=== PATIENT | male | born 1960 | race Caucasian/White ===

== ENCOUNTER 2021-04-01 15:22 | Inpatient (IN) | payer BC ==
[~2021-04-01] VITALS: Ht 175.3 cm; Wt 90.9 kg
[2021-04-01] MEDS ORDERED: ondansetron/PF 4mg/2ml inj IV ONE (16:10)
[2021-04-01] MEDS ORDERED: iohexol 350MG/ML 100ml bottle IV ONE (16:20)
[2021-04-01] MEDS ORDERED: dexamethasone 4mg tablet PO ONE (16:20)
[2021-04-01 16:25] LABS: BASOPHILS % (AUTO) 0.2 % (0-1); EOSINOPHILS % (AUTO) 0.1 % (0-6); HEMATOCRIT 40.9 % (42.0-52.0); HEMOGLOBIN 13.9 g/dl (14.0-17.9); LYMPHOCYTES # (AUTO) 0.6 X10'3 (1.1-4.8); LYMPHOCYTES % (AUTO) 13.7 % (21-51); MEAN CORPUSCULAR HEMOGLOBIN 29.3 PG (27.0-31.0); MEAN CORPUSCULAR HGB CONC 33.9 g/dL (33.0-36.5); MEAN CORPUSCULAR VOLUME 86.3 FL (78-98); MEAN PLATELET VOLUME 8.3 FL (7.4-10.4); MONOCYTES # (AUTO) 0.2 X10'3 (0-0.9); MONOCYTES % (AUTO) 4.9 % (2-12); NEUTROPHILS # (AUTO) 3.6 X10'3 (1.8-7.7); NEUTROPHILS % (AUTO) 81.1 % (42-75); PLATELET COUNT 181 X10'3 (140-440); RED BLOOD COUNT 4.74 X10'6 (4.70-6.10); RED CELL DISTRIBUTION WIDTH 14.4 % (11.5-14.5); WHITE BLOOD COUNT 4.4 X10'3 (4.5-11.0)
[2021-04-01 16:39] LABS: D-DIMER 0.51 MG/L FEU (0-0.50)
[2021-04-01 16:43] LABS: ALANINE AMINOTRANSFERASE 72 U/L (12-78); ALBUMIN 3.2 G/DL (3.4-5.0); ALBUMIN/GLOBULIN RATIO 0.7 (1.1-1.5); ALKALINE PHOSPHATASE 65 IU/L (46-116); ASPARTATE AMINO TRANSFERASE 69 U/L (10-37); BILIRUBIN,TOTAL 0.4 MG/DL (0.1-1.0); BLOOD UREA NITROGEN 17 MG/DL (7-18); BUN/CREATININE RATIO 13.2 (5.4-32.0); C-REACTIVE PROTEIN 8.36 MG/DL (0.0-0.5); CALCIUM 8.6 MG/DL (8.5-10.1); CREATININE 1.29 MG/DL (0.60-1.10); GLUCOSE 118 MG/DL (70-104); LACTATE DEHYDROGENASE 367 U/L (85-227); MAGNESIUM 2.1 MG/DL (1.5-2.4); TOTAL CARBON DIOXIDE 27.3 MMOL/L (24-32); TOTAL PROTEIN 7.8 G/DL (6.4-8.2); eGFR 57 ML/MIN
[2021-04-01 16:52] LABS: ANION GAP 8 (8-16); CHLORIDE 104 MMOL/L (99-107); POTASSIUM 4.1 MMOL/L (3.5-5.1); SODIUM 139 MMOL/L (135-145)
[2021-04-01] MEDS ORDERED: AMLO5TAB4 PO (16:55)
[2021-04-01] MEDS ORDERED: ALBU6.7H9 INH (16:55)
[2021-04-01] MEDS ORDERED: FLUT1DIS20 INH (16:55)
[2021-04-01] MEDS ORDERED: LOSA50TA3 PO (16:55)
[2021-04-01] MEDS ORDERED: OMEP40CA21 PO (16:55)
[2021-04-01] MEDS ORDERED: REMDESIVIR INJ 200 MG in normal saline 100ml IV soln 60 ML IV ONE (18:00)
[2021-04-01] MEDS ORDERED: magnesium 2GM in 50ml NS 50 ML IV PRN (18:05)
[2021-04-01] MEDS ORDERED: acetaminophen 325mg tablet PO PRN (18:05)
[2021-04-01] MEDS ORDERED: magnesium 4gm in 100ml NS 100 ML IV PRN (18:05)
[2021-04-01] MEDS ORDERED: mag hydrox/Alum hydrox/simeth 30ml oral suspension PO PRN (18:05)
[2021-04-01] MEDS ORDERED: potassium Cl 20 mEq SR tablet PO PRN ×2 (18:05)
[2021-04-01] MEDS ORDERED: potassium Cl 40MEQ/1/2NS 520ml 520 ML IV PRN ×2 (18:05)
[2021-04-01] MEDS ORDERED: magnesium hydroxide 30ml (MOM) UD suspension PO PRN (18:05)
[2021-04-01] MEDS ORDERED: ondansetron/PF 4mg/2ml inj IV PRN (18:05)
[2021-04-01] MEDS ORDERED: HYDROcodone/acetaminophen 5mg/325mg tablet PO PRN (18:05)
[2021-04-01] MEDS ORDERED: HYDROcodone/acetaminophen 10/325mg tab PO PRN (18:05)
[2021-04-01] MEDS: ALBUTEROL INHALER 1 PUFF/90 MCG INHALER IH SCH (20:00)
[2021-04-01] MEDS: SALMETEROL IH SCH (20:00)
[2021-04-01] MEDS ORDERED: dexamethasone 4mg/ml inj IM SCH (20:00)
[2021-04-01] MEDS: docusate sod 100mg capsule PO SCH (20:00)
[2021-04-01] MEDS: FLUTICASONE IH SCH (20:00)
[2021-04-01] MEDS: K and/or MAG REPLACEMENT MC SCH (20:00)
[2021-04-01] MEDS: enoxaparin 40mg/0.4ml syringe SQ SCH (20:50)
[2021-04-01 20:54] LABS: CLARITY,URINE CLEAR (Clear); COLOR,URINE YELLOW (Yellow); GLUCOSE, URINE NEGATIVE (Neg); KETONES,URINE 15 mg/dl (Neg); LEUKOCYTE ESTERASE ,URINE NEGATIVE (Neg); NITRITES, URINE NEGATIVE (Neg); OCCULT BLOOD,URINE NEGATIVE (Neg); PROTEIN,URINE NEGATIVE (Neg); UA COLLECTION TYPE URINAL; UROBILINOGEN,URINE 0.2 E.U/dL (0.2-1.0)
[2021-04-02] MEDS: ALBUTEROL INHALER 1 PUFF/90 MCG INHALER IH SCH ×4 (02:00→20:46)
[2021-04-02] MEDS: acetaminophen 325mg tablet PO PRN ×4 (03:50→22:22)
[2021-04-02] MEDS: pantoprazole 40mg Tablet.DR PO SCH (07:19)
[2021-04-02] MEDS: docusate sod 100mg capsule PO SCH ×2 (07:19→20:00)
[2021-04-02] MEDS: enoxaparin 40mg/0.4ml syringe SQ SCH ×2 (07:21→11:16)
[2021-04-02] MEDS: amLODIPine 5mg tablet PO SCH (07:24)
[2021-04-02] MEDS: REMDESIVIR INJ 100 MG in normal saline 100ml IV soln 80 ML IV SCH (08:00)
[2021-04-02] MEDS: losartan 50mg tablet PO SCH (08:00)
[2021-04-02] MEDS: FLUTICASONE IH SCH ×2 (08:17→22:22)
[2021-04-02] MEDS: SALMETEROL IH SCH ×2 (08:17→22:22)
[2021-04-02 08:22] LABS: BASOPHILS % (AUTO) 0.1 % (0-1); EOSINOPHILS % (AUTO) 0 % (0-6); HEMATOCRIT 41.9 % (42.0-52.0); LYMPHOCYTES # (AUTO) 0.6 X10'3 (1.1-4.8); LYMPHOCYTES % (AUTO) 10.8 % (21-51); MEAN CORPUSCULAR HGB CONC 33.5 g/dL (33.0-36.5); MEAN CORPUSCULAR VOLUME 86.8 FL (78-98); MEAN PLATELET VOLUME 7.9 FL (7.4-10.4); MONOCYTES # (AUTO) 0.4 X10'3 (0-0.9); MONOCYTES % (AUTO) 6.6 % (2-12); NEUTROPHILS # (AUTO) 4.4 X10'3 (1.8-7.7); NEUTROPHILS % (AUTO) 82.5 % (42-75); PLATELET COUNT 211 X10'3 (140-440); RED BLOOD COUNT 4.82 X10'6 (4.70-6.10); WHITE BLOOD COUNT 5.4 X10'3 (4.5-11.0)
[2021-04-02 08:28] LABS: D-DIMER 0.34 MG/L FEU (0-0.50)
[2021-04-02] MEDS: K and/or MAG REPLACEMENT MC SCH ×2 (08:28→19:48)
[2021-04-02 08:29] LABS: ALANINE AMINOTRANSFERASE 72 U/L (12-78); ALBUMIN 3.2 G/DL (3.4-5.0); ALBUMIN/GLOBULIN RATIO 0.7 (1.1-1.5); ANION GAP 10 (8-16); ASPARTATE AMINO TRANSFERASE 79 U/L (10-37); BILIRUBIN,TOTAL 0.3 MG/DL (0.1-1.0); BLOOD UREA NITROGEN 22 MG/DL (7-18); BUN/CREATININE RATIO 17.9 (5.4-32.0); C-REACTIVE PROTEIN 9.82 MG/DL (0.0-0.5); CALCIUM 8.9 MG/DL (8.5-10.1); CHLORIDE 102 MMOL/L (99-107); CREATININE 1.23 MG/DL (0.60-1.10); GLUCOSE 133 MG/DL (70-104); MAGNESIUM 2.3 MG/DL (1.5-2.4); POTASSIUM 4.4 MMOL/L (3.5-5.1); SODIUM 137 MMOL/L (135-145); TOTAL CARBON DIOXIDE 25.1 MMOL/L (24-32); TOTAL PROTEIN 7.7 G/DL (6.4-8.2); eGFR 60 ML/MIN
[2021-04-02 08:30] LABS: ALKALINE PHOSPHATASE 74 IU/L (46-116)
[2021-04-02] MEDS: dexamethasone 6 MG in NS 50ml IV soln IV SCH ×2 (10:39→20:05)
[2021-04-02] MEDS: temazepam 15mg capsule PO PRN (22:22)
[2021-04-03] MEDS: ALBUTEROL INHALER 1 PUFF/90 MCG INHALER IH SCH ×4 (02:00→19:19)
--- NOTE | 2021-04-03 05:20 | NUR ---
Pt O2 sat dropping to 85 consistently. Pt woken and instructed to use bedside inhaler per respiratory therapy and to deep breathe and cough. Pt states he is not coughing up mucus, but it feels loose in his lungs. Pt O2 sat increased to 89%.
[2021-04-03 07:37] LABS: BASOPHILS % (AUTO) 0.1 % (0-1); EOSINOPHILS % (AUTO) 0 % (0-6); HEMATOCRIT 39.7 % (42.0-52.0); HEMOGLOBIN 13.6 g/dl (14.0-17.9); LYMPHOCYTES # (AUTO) 0.8 X10'3 (1.1-4.8); LYMPHOCYTES % (AUTO) 8.1 % (21-51); MEAN CORPUSCULAR HEMOGLOBIN 29.3 PG (27.0-31.0); MEAN CORPUSCULAR HGB CONC 34.3 g/dL (33.0-36.5); MEAN CORPUSCULAR VOLUME 85.3 FL (78-98); MEAN PLATELET VOLUME 7.9 FL (7.4-10.4); MONOCYTES # (AUTO) 0.6 X10'3 (0-0.9); MONOCYTES % (AUTO) 6.1 % (2-12); NEUTROPHILS # (AUTO) 7.9 X10'3 (1.8-7.7); NEUTROPHILS % (AUTO) 85.7 % (42-75); PLATELET COUNT 271 X10'3 (140-440); RED BLOOD COUNT 4.66 X10'6 (4.70-6.10); RED CELL DISTRIBUTION WIDTH 14.2 % (11.5-14.5); WHITE BLOOD COUNT 9.3 X10'3 (4.5-11.0)
[2021-04-03 07:53] LABS: D-DIMER 0.32 MG/L FEU (0-0.50)
[2021-04-03] MEDS: K and/or MAG REPLACEMENT MC SCH ×2 (08:00→19:30)
[2021-04-03] MEDS: SALMETEROL IH SCH ×2 (08:00→15:12)
[2021-04-03] MEDS: FLUTICASONE IH SCH ×2 (08:00→15:12)
[2021-04-03] MEDS: docusate sod 100mg capsule PO SCH ×2 (08:00→19:30)
[2021-04-03 08:04] LABS: ALANINE AMINOTRANSFERASE 62 U/L (12-78); ALBUMIN/GLOBULIN RATIO 0.7 (1.1-1.5); ALKALINE PHOSPHATASE 55 IU/L (46-116); ANION GAP 11 (8-16); ASPARTATE AMINO TRANSFERASE 74 U/L (10-37); BILIRUBIN,TOTAL 0.3 MG/DL (0.1-1.0); BLOOD UREA NITROGEN 32 MG/DL (7-18); BUN/CREATININE RATIO 27.1 (5.4-32.0); C-REACTIVE PROTEIN 3.84 MG/DL (0.0-0.5); CALCIUM 8.8 MG/DL (8.5-10.1); CHLORIDE 105 MMOL/L (99-107); CHOL/HDL RATIO 2.8 (0.00-4.99); CHOLESTEROL 159 MG/DL (0-200); CREATININE 1.18 MG/DL (0.60-1.10); GLUCOSE 150 MG/DL (70-104); HDL CHOLESTEROL 57 MG/DL (35-60); LDL CHOLESTEROL 83 MG/DL (50-100); MAGNESIUM 2.4 MG/DL (1.5-2.4); POTASSIUM 4.4 MMOL/L (3.5-5.1); SODIUM 143 MMOL/L (135-145); TOTAL CARBON DIOXIDE 27.1 MMOL/L (24-32); TOTAL PROTEIN 7.3 G/DL (6.4-8.2); TRIGLYCERIDES 94 MG/DL (20-135); eGFR 63 ML/MIN
[2021-04-03] MEDS: pantoprazole 40mg Tablet.DR PO SCH (10:11)
[2021-04-03] MEDS: losartan 50mg tablet PO SCH (10:13)
[2021-04-03] MEDS: enoxaparin 40mg/0.4ml syringe SQ SCH ×2 (10:14→19:16)
[2021-04-03] MEDS: amLODIPine 5mg tablet PO SCH (10:14)
[2021-04-03] MEDS: REMDESIVIR INJ 100 MG in normal saline 100ml IV soln 80 ML IV SCH (10:15)
[2021-04-03] MEDS: dexamethasone 6 MG in NS 50ml IV soln IV SCH ×2 (10:15→19:16)
[2021-04-03] MEDS: guaiFENesin/codeine phos 10ml UD oral syrup PO PRN (11:42)
--- NOTE | 2021-04-03 12:46 | NUR ---
ASSUMED CARE OF PT FROM ARIA BAR
--- NOTE | 2021-04-03 14:00 | NUR ---
pt is resting quietly on bed, resp even and unlabored at rest, pt is GCS 15 alert and oriented, skin p/w/d
--- NOTE | 2021-04-03 17:12 | NUR ---
I have received report from YOSVANY [place] IN ER and had the opportunity to ask questions.
--- NOTE | 2021-04-03 17:14 | NUR ---
pt continues to rest quietly on bed, playing on phone off and on, report called to Nathaly BAR
[2021-04-03 17:25] VITALS: BP 119/73
--- NOTE | 2021-04-03 17:25 | NUR ---
PT ARRIVED TO O/N FLOOR IN STABLE CONDITION
--- NOTE | 2021-04-03 18:42 | NUR ---
Problems reprioritized. Patient report given, questions answered & plan of care reviewed with YOSVANY MUNROE.
[2021-04-03] MEDS: acetaminophen 325mg tablet PO PRN (21:20)
[2021-04-03] MEDS: temazepam 15mg capsule PO PRN (21:20)
[2021-04-03 22:00] VITALS: BP 118/73
[2021-04-04 02:00] VITALS: BP 117/77
[2021-04-04] MEDS: ALBUTEROL INHALER 1 PUFF/90 MCG INHALER IH SCH ×4 (02:00→19:49)
[2021-04-04 06:00] VITALS: BP 112/64
--- NOTE | 2021-04-04 06:33 | NUR ---
Patient in room ORTHO 4020B. I have received report from SRUG/CELL TESTER and had the opportunity to ask questions and assume patient care.
[2021-04-04 07:49] LABS: BASOPHILS % (AUTO) 0.2 % (0-1); EOSINOPHILS % (AUTO) 0 % (0-6); HEMATOCRIT 40.9 % (42.0-52.0); HEMOGLOBIN 13.7 g/dl (14.0-17.9); LYMPHOCYTES # (AUTO) 0.8 X10'3 (1.1-4.8); LYMPHOCYTES % (AUTO) 7.4 % (21-51); MEAN CORPUSCULAR HEMOGLOBIN 28.8 PG (27.0-31.0); MEAN CORPUSCULAR HGB CONC 33.4 g/dL (33.0-36.5); MEAN CORPUSCULAR VOLUME 86.1 FL (78-98); MEAN PLATELET VOLUME 7.7 FL (7.4-10.4); MONOCYTES # (AUTO) 0.8 X10'3 (0-0.9); MONOCYTES % (AUTO) 7.8 % (2-12); NEUTROPHILS # (AUTO) 9.1 X10'3 (1.8-7.7); NEUTROPHILS % (AUTO) 84.6 % (42-75); PLATELET COUNT 326 X10'3 (140-440); RED BLOOD COUNT 4.75 X10'6 (4.70-6.10); RED CELL DISTRIBUTION WIDTH 14.4 % (11.5-14.5); WHITE BLOOD COUNT 10.7 X10'3 (4.5-11.0)
[2021-04-04] MEDS: K and/or MAG REPLACEMENT MC SCH ×2 (08:00→20:21)
[2021-04-04 08:24] LABS: ALANINE AMINOTRANSFERASE 90 U/L (12-78); ALBUMIN/GLOBULIN RATIO 0.7 (1.1-1.5); ALKALINE PHOSPHATASE 60 IU/L (46-116); ANION GAP 10 (8-16); ASPARTATE AMINO TRANSFERASE 93 U/L (10-37); BILIRUBIN,TOTAL 0.4 MG/DL (0.1-1.0); BLOOD UREA NITROGEN 36 MG/DL (7-18); BUN/CREATININE RATIO 33.6 (5.4-32.0); C-REACTIVE PROTEIN 1.73 MG/DL (0.0-0.5); CALCIUM 9.1 MG/DL (8.5-10.1); CHLORIDE 106 MMOL/L (99-107); CREATININE 1.07 MG/DL (0.60-1.10); GLUCOSE 133 MG/DL (70-104); MAGNESIUM 2.6 MG/DL (1.5-2.4); POTASSIUM 4.9 MMOL/L (3.5-5.1); SODIUM 143 MMOL/L (135-145); TOTAL CARBON DIOXIDE 26.8 MMOL/L (24-32); TOTAL PROTEIN 7.2 G/DL (6.4-8.2); eGFR 70 ML/MIN
[2021-04-04] MEDS: pantoprazole 40mg Tablet.DR PO SCH (09:19)
[2021-04-04] MEDS: losartan 50mg tablet PO SCH (09:20)
[2021-04-04] MEDS: amLODIPine 5mg tablet PO SCH (09:21)
[2021-04-04] MEDS: docusate sod 100mg capsule PO SCH ×2 (09:21→20:00)
[2021-04-04] MEDS: dexamethasone 6 MG in NS 50ml IV soln IV SCH ×2 (09:21→20:45)
[2021-04-04] MEDS: REMDESIVIR INJ 100 MG in normal saline 100ml IV soln 80 ML IV SCH (09:22)
[2021-04-04] MEDS: enoxaparin 40mg/0.4ml syringe SQ SCH ×2 (09:22→19:43)
[2021-04-04] MEDS: acetaminophen 325mg tablet PO PRN (09:37)
[2021-04-04] MEDS: SALMETEROL IH SCH (09:38)
[2021-04-04] MEDS: FLUTICASONE IH SCH (09:38)
[2021-04-04 09:45] LABS: D-DIMER 0.45 MG/L FEU (0-0.50)
[2021-04-04 10:00] VITALS: BP 125/78
[2021-04-04 14:00] VITALS: BP 125/77
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
[2021-04-04 18:00] VITALS: BP 131/77
--- NOTE | 2021-04-04 18:30 | NUR ---
Problems reprioritized. Patient report given, questions answered & plan of care reviewed with YOSVANY PEGUERO.
[2021-04-04] MEDS: ibuprofen 200mg tablet PO PRN (19:42)
[2021-04-04] MEDS: temazepam 15mg capsule PO PRN (21:23)
[2021-04-05] MEDS: ALBUTEROL INHALER 1 PUFF/90 MCG INHALER IH SCH ×5 (02:00→20:19)
[2021-04-05] MEDS: ibuprofen 200mg tablet PO PRN ×2 (05:44→20:47)
[2021-04-05 06:10] VITALS: BP 122/61
--- NOTE | 2021-04-05 06:31 | NUR ---
Problems reprioritized. Patient report given, questions answered & plan of care reviewed with
--- NOTE | 2021-04-05 06:33 | NUR ---
Patient in room ORTHO 4020. I have received report from Coty BAR and had the opportunity to ask questions and assume patient care.
[2021-04-05] MEDS: enoxaparin 40mg/0.4ml syringe SQ SCH ×2 (07:11→20:12)
[2021-04-05] MEDS: dexamethasone 6 MG in NS 50ml IV soln IV SCH ×2 (07:11→20:12)
[2021-04-05] MEDS: amLODIPine 5mg tablet PO SCH (07:12)
[2021-04-05] MEDS: pantoprazole 40mg Tablet.DR PO SCH (07:12)
[2021-04-05] MEDS: losartan 50mg tablet PO SCH (07:12)
[2021-04-05] MEDS: docusate sod 100mg capsule PO SCH ×2 (07:12→20:00)
[2021-04-05] MEDS ORDERED: salt irrigation nasal spray 45 ML SPRAY NS PRN (07:35)
[2021-04-05] MEDS: guaiFENesin/codeine phos 10ml UD oral syrup PO PRN ×2 (07:39→15:50)
[2021-04-05] MEDS: K and/or MAG REPLACEMENT MC SCH ×2 (08:00→20:00)
[2021-04-05] MEDS: REMDESIVIR INJ 100 MG in normal saline 100ml IV soln 80 ML IV SCH (08:03)
[2021-04-05] MEDS: fluticasone nasal spray 16GM bottle NS SCH (08:11)
[2021-04-05 08:45] LABS: BASOPHILS % (AUTO) 0.1 % (0-1); EOSINOPHILS % (AUTO) 0 % (0-6); HEMATOCRIT 42.5 % (42.0-52.0); HEMOGLOBIN 14.3 g/dl (14.0-17.9); LYMPHOCYTES # (AUTO) 0.9 X10'3 (1.1-4.8); LYMPHOCYTES % (AUTO) 8.1 % (21-51); MEAN CORPUSCULAR HEMOGLOBIN 29.1 PG (27.0-31.0); MEAN CORPUSCULAR HGB CONC 33.5 g/dL (33.0-36.5); MEAN CORPUSCULAR VOLUME 86.7 FL (78-98); MEAN PLATELET VOLUME 7.9 FL (7.4-10.4); MONOCYTES # (AUTO) 0.5 X10'3 (0-0.9); MONOCYTES % (AUTO) 4.5 % (2-12); NEUTROPHILS # (AUTO) 9.6 X10'3 (1.8-7.7); NEUTROPHILS % (AUTO) 87.3 % (42-75); PLATELET COUNT 367 X10'3 (140-440); RED BLOOD COUNT 4.91 X10'6 (4.70-6.10); RED CELL DISTRIBUTION WIDTH 14.2 % (11.5-14.5)
[2021-04-05 08:55] LABS: ALANINE AMINOTRANSFERASE 122 U/L (12-78); ALBUMIN 3.1 G/DL (3.4-5.0); ALBUMIN/GLOBULIN RATIO 0.7 (1.1-1.5); ALKALINE PHOSPHATASE 68 IU/L (46-116); ANION GAP 11 (8-16); ASPARTATE AMINO TRANSFERASE 88 U/L (10-37); BILIRUBIN,TOTAL 0.6 MG/DL (0.1-1.0); BLOOD UREA NITROGEN 31 MG/DL (7-18); BUN/CREATININE RATIO 30.7 (5.4-32.0); CALCIUM 9.1 MG/DL (8.5-10.1); CHLORIDE 105 MMOL/L (99-107); CREATININE 1.01 MG/DL (0.60-1.10); GLUCOSE 152 MG/DL (70-104); MAGNESIUM 2.5 MG/DL (1.5-2.4); POTASSIUM 4.6 MMOL/L (3.5-5.1); SODIUM 143 MMOL/L (135-145); TOTAL CARBON DIOXIDE 27.2 MMOL/L (24-32); TOTAL PROTEIN 7.4 G/DL (6.4-8.2); eGFR 75 ML/MIN
--- NOTE | 2021-04-05 09:00 | NUR ---
PATIENT REPORT GIVEN TO COLETTE BAR
--- NOTE | 2021-04-05 09:54 | NUR ---
Initial: Pt admit DX COVID-19 PNA, HTN, SIRS, and renal insufficiency per DO note. PO 50% avg heart healthy diet w/ 100% dinner last night partially meeting needs on 15L HFNC per EMR. RD recommends Ensure Enlive BIDBD to optimize protein/kcal intake; DO notified. LBM 04/01 receiving routine colace; would benefit from additional bowel care given if DO agreeable. Will continue to monitor for additional nutrition intervention needs this admit. Rec: 1. continue heart healthy diet; encourage PO 2. Ensure Enlive BIDBD; pending DO verification in EMR 3. routine bowel care; 4 days constipation 4. scaled wt this admit; subsequent weekly wts Addendum: 04/05/21 at [address] Amended: Links added.
[2021-04-05 10:00] VITALS: BP 125/78
[2021-04-05 14:00] VITALS: BP 117/70
[2021-04-05] MEDS: FLUTICASONE IH SCH ×2 (14:27→20:19)
[2021-04-05] MEDS: SALMETEROL IH SCH ×2 (14:27→20:19)
--- NOTE | 2021-04-05 16:00 | NUR ---
10/20 AM ASSESSMENT documentation: I have reviewed and agree with all interventions, assessments performed and documented by YOSVANY PEDERSEN.
[2021-04-05 18:00] VITALS: BP 121/75
--- NOTE | 2021-04-05 18:16 | NUR ---
Problems reprioritized. Patient report given, questions answered & plan of care reviewed with YOSVANY PEGUERO.
[2021-04-05] MEDS: temazepam 15mg capsule PO PRN (20:47)
[2021-04-05 22:00] VITALS: BP 126/60
[2021-04-06 06:43] VITALS: BP 120/75
[2021-04-06 07:26] LABS: BASOPHILS # (AUTO) 0.1 X10'3 (0-0.2); BASOPHILS % (AUTO) 0.5 % (0-1); EOSINOPHILS % (AUTO) 0 % (0-6); HEMATOCRIT 41.6 % (42.0-52.0); HEMOGLOBIN 13.6 g/dl (14.0-17.9); LYMPHOCYTES # (AUTO) 0.8 X10'3 (1.1-4.8); MEAN CORPUSCULAR HEMOGLOBIN 28.7 PG (27.0-31.0); MEAN CORPUSCULAR HGB CONC 32.6 g/dL (33.0-36.5); MEAN PLATELET VOLUME 8.4 FL (7.4-10.4); MONOCYTES # (AUTO) 0.9 X10'3 (0-0.9); MONOCYTES % (AUTO) 7.9 % (2-12); NEUTROPHILS % (AUTO) 84.6 % (42-75); PLATELET COUNT 346 X10'3 (140-440); RED BLOOD COUNT 4.73 X10'6 (4.70-6.10); RED CELL DISTRIBUTION WIDTH 14.5 % (11.5-14.5); WHITE BLOOD COUNT 11.8 X10'3 (4.5-11.0)
[2021-04-06] MEDS: lactose-reduced food (Ensure Enlive) - 237ml bottle PO SCH ×3 (07:30→17:20)
[2021-04-06] MEDS: K and/or MAG REPLACEMENT MC SCH ×2 (08:00→20:00)
[2021-04-06] MEDS: fluticasone nasal spray 16GM bottle NS SCH (08:00)
[2021-04-06] MEDS: losartan 50mg tablet PO SCH (08:06)
[2021-04-06] MEDS: dexamethasone 6 MG in NS 50ml IV soln IV SCH ×2 (08:06→20:00)
[2021-04-06] MEDS: pantoprazole 40mg Tablet.DR PO SCH (08:06)
[2021-04-06] MEDS: enoxaparin 40mg/0.4ml syringe SQ SCH ×2 (08:06→20:01)
[2021-04-06] MEDS: amLODIPine 5mg tablet PO SCH (08:07)
[2021-04-06] MEDS: docusate sod 100mg capsule PO SCH ×2 (08:07→20:00)
[2021-04-06 08:47] LABS: ALANINE AMINOTRANSFERASE 87 U/L (12-78); ALBUMIN 2.7 G/DL (3.4-5.0); ALBUMIN/GLOBULIN RATIO 0.6 (1.1-1.5); ALKALINE PHOSPHATASE 62 IU/L (46-116); ANION GAP 14 (8-16); ASPARTATE AMINO TRANSFERASE 61 U/L (10-37); BILIRUBIN,TOTAL 0.5 MG/DL (0.1-1.0); BLOOD UREA NITROGEN 34 MG/DL (7-18); BUN/CREATININE RATIO 38.6 (5.4-32.0); CALCIUM 8.8 MG/DL (8.5-10.1); CHLORIDE 104 MMOL/L (99-107); CREATININE 0.88 MG/DL (0.60-1.10); GLUCOSE 128 MG/DL (70-104); MAGNESIUM 2.8 MG/DL (1.5-2.4); SODIUM 140 MMOL/L (135-145); TOTAL CARBON DIOXIDE 21.8 MMOL/L (24-32); eGFR 88 ML/MIN
[2021-04-06 08:51] LABS: POTASSIUM 4.7 MMOL/L (3.5-5.1)
[2021-04-06] MEDS: ALBUTEROL INHALER 1 PUFF/90 MCG INHALER IH SCH ×3 (09:05→20:09)
[2021-04-06] MEDS: FLUTICASONE IH SCH ×2 (09:05→20:09)
[2021-04-06] MEDS: SALMETEROL IH SCH ×2 (09:05→20:09)
[2021-04-06 10:55] VITALS: BP 128/76
[2021-04-06 11:31] LABS: TOTAL CELLS COUNTED 100
[2021-04-06 11:32] LABS: PLATELET ESTIMATE NORMAL
[2021-04-06] MEDS: guaiFENesin/codeine phos 10ml UD oral syrup PO PRN ×2 (12:31→19:04)
[2021-04-06] MEDS: ibuprofen 200mg tablet PO PRN ×2 (12:32→19:04)
[2021-04-06 15:34] VITALS: BP 115/71
--- NOTE | 2021-04-06 18:37 | NUR ---
Patient in room ORTHO 4020. I have received report from Chas BAR and had the opportunity to ask questions and assume patient care.
[2021-04-06 19:40] VITALS: BP 126/71
[2021-04-06 20:31] LABS: ABG HCO3 22.9 mmol/L (22.0-26.0); ABG OXYGEN SATURATION 97.5 % (94-97); ABG PCO2 (T) 35.4 mmHg (35.0-48.0); ABG PO2 (T) 106.2 mmHg (75.0-100.0); ALLEN'S TEST POSITIVE; FCOHb 0.1 % (0.0-3.9); FLOW 30 L/min; FO2Hb 97.4 % (94-97); PATIENT TEMPERATURE 36.7; TOTAL HEMOGLOBIN 13.7 G/dl (14.0-18.0)
[2021-04-06] MEDS: temazepam 15mg capsule PO PRN (21:25)
[2021-04-06 22:00] VITALS: BP 127/70
[2021-04-07] VITALS (7 sets, daily range): BP systolic 113–131; BP diastolic 61–84
[2021-04-07] MEDS: ALBUTEROL INHALER 1 PUFF/90 MCG INHALER IH SCH ×4 (01:46→19:45)
--- NOTE | 2021-04-07 03:00 | NUR ---
I have reviewed and agree with all interventions, assessments performed and documented by Patricia .
--- NOTE | 2021-04-07 06:41 | NUR ---
Problems reprioritized. Patient report given, questions answered & plan of care reviewed with Deepti BAR.
--- NOTE | 2021-04-07 07:03 | NUR ---
Patient in room ORTHO 4020. I have received report from Aury BAR and had the opportunity to ask questions and assume patient care.
[2021-04-07] MEDS: lactose-reduced food (Ensure Enlive) - 237ml bottle PO SCH ×2 (07:30→17:53)
[2021-04-07] MEDS: K and/or MAG REPLACEMENT MC SCH ×2 (08:00→19:43)
[2021-04-07] MEDS: docusate sod 100mg capsule PO SCH ×2 (08:00→19:43)
--- NOTE | 2021-04-07 08:05 | NUR ---
PAGER ID: [phone] MESSAGE: re: room 4020B, Madhav Marrero Only Mg lab ordered for today. Would you like any add'l labs? Thank you, Deepti [email or web address] Will continue to monitor.
[2021-04-07] MEDS: amLODIPine 5mg tablet PO SCH (09:19)
[2021-04-07] MEDS: enoxaparin 40mg/0.4ml syringe SQ SCH ×2 (09:19→19:43)
[2021-04-07] MEDS: pantoprazole 40mg Tablet.DR PO SCH (09:20)
[2021-04-07] MEDS: losartan 50mg tablet PO SCH (09:20)
[2021-04-07] MEDS: dexamethasone 6 MG in NS 50ml IV soln IV SCH (09:22)
[2021-04-07] MEDS: FLUTICASONE IH SCH ×2 (09:23→19:45)
[2021-04-07] MEDS: SALMETEROL IH SCH ×2 (09:23→19:45)
[2021-04-07] MEDS: fluticasone nasal spray 16GM bottle NS SCH (09:24)
--- NOTE | 2021-04-07 10:01 | NUR ---
Pt's home med Advair 250/50 (generic) and albuterol mdi given by YOSVANY. Water refilled on [place] high flow, pt in no distress. Will cont to monitor. Addendum: 04/07/21 at [address] Amended: Links added.
--- NOTE | 2021-04-07 10:59 | NUR ---
Telephone call from pt's , update given with pt's permission.
[2021-04-07] MEDS: guaiFENesin/codeine phos 10ml UD oral syrup PO PRN ×2 (13:38→19:43)
[2021-04-07] MEDS: methylPREDNISolone sod succ/PF 40mg inj. IV SCH ×2 (17:53→23:53)
--- NOTE | 2021-04-07 18:16 | NUR ---
Problems reprioritized. Patient report given, questions answered & plan of care reviewed with Aury BAR.
--- NOTE | 2021-04-07 18:17 | NUR ---
Patient in room ORTHO 4020. I have received report from Deepti BAR and had the opportunity to ask questions and assume patient care.
[2021-04-07] MEDS: ibuprofen 200mg tablet PO PRN (19:43)
[2021-04-07] MEDS: temazepam 15mg capsule PO PRN (21:28)
[2021-04-08] MEDS: ALBUTEROL INHALER 1 PUFF/90 MCG INHALER IH SCH ×4 (01:41→19:14)
[2021-04-08 02:00] VITALS: BP 105/56
[2021-04-08 06:00] VITALS: BP 106/60
--- NOTE | 2021-04-08 06:30 | NUR ---
Patient in room ORTHO 4020. I have received report from Aury BAR and had the opportunity to ask questions and assume patient care.
--- NOTE | 2021-04-08 06:36 | NUR ---
Problems reprioritized. Patient report given, questions answered & plan of care reviewed with Dwight BAR.
[2021-04-08] MEDS: docusate sod 100mg capsule PO SCH ×2 (08:00→19:09)
[2021-04-08] MEDS: K and/or MAG REPLACEMENT MC SCH ×2 (08:00→19:09)
[2021-04-08] MEDS: SALMETEROL IH SCH ×2 (08:00→19:13)
[2021-04-08] MEDS: FLUTICASONE IH SCH ×2 (08:00→19:13)
[2021-04-08] MEDS: methylPREDNISolone sod succ/PF 40mg inj. IV SCH ×3 (08:26→23:47)
[2021-04-08] MEDS: amLODIPine 5mg tablet PO SCH (08:27)
[2021-04-08] MEDS: pantoprazole 40mg Tablet.DR PO SCH (08:28)
[2021-04-08] MEDS: enoxaparin 40mg/0.4ml syringe SQ SCH ×2 (08:28→19:09)
[2021-04-08] MEDS: losartan 50mg tablet PO SCH (08:28)
[2021-04-08] MEDS: lactose-reduced food (Ensure Enlive) - 237ml bottle PO SCH ×2 (08:29→18:00)
[2021-04-08] MEDS: fluticasone nasal spray 16GM bottle NS SCH (08:30)
[2021-04-08] MEDS: guaiFENesin/codeine phos 10ml UD oral syrup PO PRN ×3 (09:28→22:31)
[2021-04-08 10:00] VITALS: BP 103/56
[2021-04-08 14:00] VITALS: BP 113/70
[2021-04-08 18:00] VITALS: BP 129/72
--- NOTE | 2021-04-08 18:16 | NUR ---
Problems reprioritized. Patient report given, questions answered & plan of care reviewed with Aury BAR.
--- NOTE | 2021-04-08 18:28 | NUR ---
Patient in room ORTHO 4020. I have received report from Dwight BAR and had the opportunity to ask questions and assume patient care.
[2021-04-08] MEDS: ibuprofen 200mg tablet PO PRN (21:43)
[2021-04-08] MEDS: temazepam 15mg capsule PO PRN (21:43)
[2021-04-08 22:00] VITALS: BP 115/55
--- NOTE | 2021-04-08 22:52 | NUR ---
Patient on 8L high flow and 15L nonrebreather on and off for shortness of breath. Addendum: 04/08/21 at 2253 by Aury Haro RN Amended: Links added.
--- NOTE | 2021-04-08 22:54 | NUR ---
Attempting to wean from nonrebreather. Patient only at 15L high flow. Addendum: 04/08/21 at 2255 by Aury Haro RN Amended: Links added.
[2021-04-09 02:00] VITALS: BP 115/71
[2021-04-09] MEDS: ALBUTEROL INHALER 1 PUFF/90 MCG INHALER IH SCH ×4 (02:00→20:00)
[2021-04-09 06:00] VITALS: BP 130/83
--- NOTE | 2021-04-09 06:26 | NUR ---
Problems reprioritized. Patient report given, questions answered & plan of care reviewed with Berta BAR.
--- NOTE | 2021-04-09 06:47 | NUR ---
Patient in room ORTHO 4020B. I have received report from YOSVANY BAY and had the opportunity to ask questions and assume patient care.
[2021-04-09] MEDS: lactose-reduced food (Ensure Enlive) - 237ml bottle PO SCH ×2 (07:30→17:50)
[2021-04-09] MEDS: K and/or MAG REPLACEMENT MC SCH ×2 (08:00→20:00)
[2021-04-09] MEDS: docusate sod 100mg capsule PO SCH ×2 (08:00→20:00)
[2021-04-09] MEDS: SALMETEROL IH SCH ×2 (08:44→20:00)
[2021-04-09] MEDS: FLUTICASONE IH SCH ×2 (08:44→20:00)
[2021-04-09] MEDS: methylPREDNISolone sod succ/PF 40mg inj. IV SCH ×3 (08:51→23:35)
[2021-04-09] MEDS: pantoprazole 40mg Tablet.DR PO SCH (08:52)
[2021-04-09] MEDS: enoxaparin 40mg/0.4ml syringe SQ SCH ×2 (08:52→21:06)
[2021-04-09] MEDS: losartan 50mg tablet PO SCH (08:53)
[2021-04-09] MEDS: amLODIPine 5mg tablet PO SCH (08:53)
[2021-04-09] MEDS: fluticasone nasal spray 16GM bottle NS SCH (08:55)
[2021-04-09 09:10] LABS: BASOPHILS % (AUTO) 0 % (0-1); D-DIMER 0.31 MG/L FEU (0-0.50); EOSINOPHILS % (AUTO) 0 % (0-6); HEMATOCRIT 40.6 % (42.0-52.0); HEMOGLOBIN 13.4 g/dl (14.0-17.9); LYMPHOCYTES # (AUTO) 0.5 X10'3 (1.1-4.8); LYMPHOCYTES % (AUTO) 3.6 % (21-51); MEAN CORPUSCULAR HEMOGLOBIN 28.6 PG (27.0-31.0); MEAN CORPUSCULAR HGB CONC 33.1 g/dL (33.0-36.5); MEAN CORPUSCULAR VOLUME 86.3 FL (78-98); MEAN PLATELET VOLUME 8.2 FL (7.4-10.4); MONOCYTES # (AUTO) 0.3 X10'3 (0-0.9); MONOCYTES % (AUTO) 2.4 % (2-12); NEUTROPHILS # (AUTO) 13.9 X10'3 (1.8-7.7); PLATELET COUNT 462 X10'3 (140-440); RED CELL DISTRIBUTION WIDTH 13.9 % (11.5-14.5); WHITE BLOOD COUNT 14.7 X10'3 (4.5-11.0)
[2021-04-09 09:24] LABS: ALANINE AMINOTRANSFERASE 68 U/L (12-78); ALBUMIN 2.8 G/DL (3.4-5.0); ALBUMIN/GLOBULIN RATIO 0.6 (1.1-1.5); ALKALINE PHOSPHATASE 70 IU/L (46-116); ANION GAP 10 (8-16); ASPARTATE AMINO TRANSFERASE 26 U/L (10-37); BILIRUBIN,TOTAL 0.5 MG/DL (0.1-1.0); BLOOD UREA NITROGEN 33 MG/DL (7-18); BUN/CREATININE RATIO 31.4 (5.4-32.0); CALCIUM 8.8 MG/DL (8.5-10.1); CHLORIDE 102 MMOL/L (99-107); CREATININE 1.05 MG/DL (0.60-1.10); GLUCOSE 245 MG/DL (70-104); POTASSIUM 4.4 MMOL/L (3.5-5.1); SODIUM 140 MMOL/L (135-145); TOTAL CARBON DIOXIDE 27.7 MMOL/L (24-32); TOTAL PROTEIN 7.4 G/DL (6.4-8.2); eGFR 72 ML/MIN
[2021-04-09 09:36] LABS: C-REACTIVE PROTEIN 1.59 MG/DL (0.0-0.5)
[2021-04-09 10:00] VITALS: BP 110/65
[2021-04-09] MEDS: guaiFENesin/codeine phos 10ml UD oral syrup PO PRN ×2 (11:21→21:11)
[2021-04-09 18:00] VITALS: BP 124/76
--- NOTE | 2021-04-09 18:33 | NUR ---
Problems reprioritized. Patient report given, questions answered & plan of care reviewed with YOSVANY SIDDIQI.
[2021-04-09] MEDS: ibuprofen 200mg tablet PO PRN (21:11)
[2021-04-09] MEDS: temazepam 15mg capsule PO PRN (21:11)
[2021-04-09 22:00] VITALS: BP 140/75
[2021-04-10 02:00] VITALS: BP 133/77
[2021-04-10] MEDS: ALBUTEROL INHALER 1 PUFF/90 MCG INHALER IH SCH ×4 (02:00→20:57)
[2021-04-10 06:00] VITALS: BP 124/76
--- NOTE | 2021-04-10 06:29 | NUR ---
Patient in room ORTHO 4020B. I have received report from YOSVANY SIDDIQI and had the opportunity to ask questions and assume patient care.
--- NOTE | 2021-04-10 06:30 | NUR ---
Problems reprioritized. Patient report given, questions answered & plan of care reviewed with YOSVANY ALVARENGA.
[2021-04-10] MEDS: methylPREDNISolone sod succ/PF 40mg inj. IV SCH ×2 (07:14→20:56)
[2021-04-10] MEDS: enoxaparin 40mg/0.4ml syringe SQ SCH (07:14)
[2021-04-10] MEDS: amLODIPine 5mg tablet PO SCH (07:15)
[2021-04-10] MEDS: losartan 50mg tablet PO SCH (07:15)
[2021-04-10] MEDS: pantoprazole 40mg Tablet.DR PO SCH (07:15)
[2021-04-10 07:16] LABS: BASOPHILS % (AUTO) 0.1 % (0-1); EOSINOPHILS % (AUTO) 0 % (0-6); HEMATOCRIT 42.2 % (42.0-52.0); HEMOGLOBIN 14.3 g/dl (14.0-17.9); LYMPHOCYTES # (AUTO) 0.9 X10'3 (1.1-4.8); LYMPHOCYTES % (AUTO) 4.8 % (21-51); MEAN CORPUSCULAR HGB CONC 33.8 g/dL (33.0-36.5); MEAN CORPUSCULAR VOLUME 85.9 FL (78-98); MEAN PLATELET VOLUME 8.7 FL (7.4-10.4); MONOCYTES # (AUTO) 0.8 X10'3 (0-0.9); MONOCYTES % (AUTO) 4.1 % (2-12); NEUTROPHILS # (AUTO) 16.9 X10'3 (1.8-7.7); PLATELET COUNT 521 X10'3 (140-440); RED BLOOD COUNT 4.91 X10'6 (4.70-6.10); RED CELL DISTRIBUTION WIDTH 14.3 % (11.5-14.5); WHITE BLOOD COUNT 18.5 X10'3 (4.5-11.0)
[2021-04-10] MEDS: docusate sod 100mg capsule PO SCH ×2 (07:16→20:00)
[2021-04-10] MEDS: fluticasone nasal spray 16GM bottle NS SCH (07:16)
[2021-04-10] MEDS: SALMETEROL IH SCH ×2 (07:16→20:57)
[2021-04-10] MEDS: FLUTICASONE IH SCH ×2 (07:16→20:57)
[2021-04-10 07:25] LABS: D-DIMER 0.32 MG/L FEU (0-0.50)
[2021-04-10] MEDS: lactose-reduced food (Ensure Enlive) - 237ml bottle PO SCH ×2 (07:30→17:58)
[2021-04-10] MEDS: K and/or MAG REPLACEMENT MC SCH ×2 (08:00→20:00)
[2021-04-10 08:17] LABS: ALANINE AMINOTRANSFERASE 71 U/L (12-78); ALBUMIN 3.1 G/DL (3.4-5.0); ALBUMIN/GLOBULIN RATIO 0.6 (1.1-1.5); ALKALINE PHOSPHATASE 72 IU/L (46-116); ANION GAP 12 (8-16); ASPARTATE AMINO TRANSFERASE 33 U/L (10-37); BILIRUBIN,TOTAL 0.6 MG/DL (0.1-1.0); BLOOD UREA NITROGEN 35 MG/DL (7-18); BUN/CREATININE RATIO 29.9 (5.4-32.0); CALCIUM 9.6 MG/DL (8.5-10.1); CHLORIDE 100 MMOL/L (99-107); CREATININE 1.17 MG/DL (0.60-1.10); GLUCOSE 154 MG/DL (70-104); SODIUM 139 MMOL/L (135-145); TOTAL CARBON DIOXIDE 27.2 MMOL/L (24-32); eGFR 63 ML/MIN
[2021-04-10 10:00] VITALS: BP 127/75
[2021-04-10] MEDS: guaiFENesin/codeine phos 10ml UD oral syrup PO PRN ×2 (10:51→20:52)
[2021-04-10 14:00] VITALS: BP 95/56
--- NOTE | 2021-04-10 14:26 | NUR ---
Reassessment: Pt PO steadily improving ~63% avg meals and 50% Ensure Enlive BIDBD meeting kcal needs and meeting 93% protein needs. First Moderate BM this AM following prior 9 days constipation per EMR. Pt continues to refuse colace since admit per EMR. Will monitor for further PO trends given now constipation resolution. Rec: 1. continue heart healthy diet; encourage PO 2. Ensure Enlive BIDBD; encourage PO 3. routine bowel care; pt refusing colace w/ prior 9 days constipation now resolved 4. scaled wt this admit; subsequent weekly wts Addendum: 04/10/21 at [address] Amended: Links added.
[2021-04-10 18:00] VITALS: BP 121/72
--- NOTE | 2021-04-10 18:26 | NUR ---
Problems reprioritized. Patient report given, questions answered & plan of care reviewed with YOSVANY HANEY.
[2021-04-10] MEDS: ibuprofen 200mg tablet PO PRN (20:53)
[2021-04-10] MEDS: temazepam 15mg capsule PO PRN (20:54)
[2021-04-10 22:00] VITALS: BP 119/75
[2021-04-11 02:00] VITALS: BP 102/62
[2021-04-11] MEDS: ALBUTEROL INHALER 1 PUFF/90 MCG INHALER IH SCH ×4 (02:00→19:23)
[2021-04-11 06:00] VITALS: BP 124/75
--- NOTE | 2021-04-11 06:18 | NUR ---
Patient in room ORTHO 4020B. I have received report from YOSVANY HANEY and had the opportunity to ask questions and assume patient care.
[2021-04-11 07:59] LABS: BASOPHILS # (AUTO) 0.2 X10'3 (0-0.2); BASOPHILS % (AUTO) 1.3 % (0-1); EOSINOPHILS % (AUTO) 0.1 % (0-6); HEMATOCRIT 37.8 % (42.0-52.0); HEMOGLOBIN 12.7 g/dl (14.0-17.9); LYMPHOCYTES # (AUTO) 0.9 X10'3 (1.1-4.8); LYMPHOCYTES % (AUTO) 6.2 % (21-51); MEAN CORPUSCULAR HGB CONC 33.6 g/dL (33.0-36.5); MEAN CORPUSCULAR VOLUME 86.4 FL (78-98); MEAN PLATELET VOLUME 8.6 FL (7.4-10.4); MONOCYTES % (AUTO) 6.7 % (2-12); NEUTROPHILS # (AUTO) 12.9 X10'3 (1.8-7.7); NEUTROPHILS % (AUTO) 85.7 % (42-75); PLATELET COUNT 368 X10'3 (140-440); RED BLOOD COUNT 4.37 X10'6 (4.70-6.10); RED CELL DISTRIBUTION WIDTH 14.2 % (11.5-14.5)
[2021-04-11] MEDS: K and/or MAG REPLACEMENT MC SCH ×2 (08:00→19:24)
[2021-04-11] MEDS: docusate sod 100mg capsule PO SCH ×2 (08:00→19:24)
[2021-04-11] MEDS: lactose-reduced food (Ensure Enlive) - 237ml bottle PO SCH ×3 (08:14→19:23)
[2021-04-11] MEDS: FLUTICASONE IH SCH ×2 (08:19→19:23)
[2021-04-11] MEDS: SALMETEROL IH SCH ×2 (08:19→19:23)
[2021-04-11] MEDS: methylPREDNISolone sod succ/PF 40mg inj. IV SCH ×2 (08:20→19:20)
[2021-04-11] MEDS: amLODIPine 5mg tablet PO SCH (08:20)
[2021-04-11] MEDS: losartan 50mg tablet PO SCH (08:20)
[2021-04-11] MEDS: pantoprazole 40mg Tablet.DR PO SCH (08:20)
[2021-04-11] MEDS: enoxaparin 40mg/0.4ml syringe SQ SCH (08:21)
[2021-04-11] MEDS: fluticasone nasal spray 16GM bottle NS SCH (08:24)
[2021-04-11 08:43] LABS: ALANINE AMINOTRANSFERASE 68 U/L (12-78); ALBUMIN 2.5 G/DL (3.4-5.0); ALBUMIN/GLOBULIN RATIO 0.6 (1.1-1.5); ALKALINE PHOSPHATASE 66 IU/L (46-116); ANION GAP 8 (8-16); ASPARTATE AMINO TRANSFERASE 23 U/L (10-37); BILIRUBIN,TOTAL 0.5 MG/DL (0.1-1.0); BLOOD UREA NITROGEN 35 MG/DL (7-18); BUN/CREATININE RATIO 32.1 (5.4-32.0); C-REACTIVE PROTEIN 0.42 MG/DL (0.0-0.5); CALCIUM 8.6 MG/DL (8.5-10.1); CHLORIDE 103 MMOL/L (99-107); CREATININE 1.09 MG/DL (0.60-1.10); GLUCOSE 125 MG/DL (70-104); POTASSIUM 5.2 MMOL/L (3.5-5.1); SODIUM 141 MMOL/L (135-145); TOTAL CARBON DIOXIDE 29.8 MMOL/L (24-32); TOTAL PROTEIN 6.6 G/DL (6.4-8.2); eGFR 69 ML/MIN
[2021-04-11 08:46] LABS: D-DIMER 0.36 MG/L FEU (0-0.50)
[2021-04-11 09:30] LABS: TOTAL CELLS COUNTED 100
[2021-04-11 09:31] LABS: PLATELET ESTIMATE NORMAL
[2021-04-11 10:00] VITALS: BP 124/79
[2021-04-11 14:00] VITALS: BP_SYST 116; BP_SYST 87; BP_DIAS 57; BP_DIAS 67
[2021-04-11] MEDS: guaiFENesin/codeine phos 10ml UD oral syrup PO PRN ×2 (14:14→21:36)
[2021-04-11] MEDS: ibuprofen 200mg tablet PO PRN (17:11)
[2021-04-11 18:00] VITALS: BP 118/74
--- NOTE | 2021-04-11 18:17 | NUR ---
Problems reprioritized. Patient report given, questions answered & plan of care reviewed with YOSVANY HANEY.
[2021-04-11] MEDS: temazepam 15mg capsule PO PRN (21:36)
[2021-04-11 22:00] VITALS: BP 128/70
[2021-04-12 02:00] VITALS: BP 144/66
[2021-04-12] MEDS: ALBUTEROL INHALER 1 PUFF/90 MCG INHALER IH SCH ×2 (02:00→08:00)
[2021-04-12] MEDS: losartan 50mg tablet PO SCH (08:00)
[2021-04-12] MEDS: amLODIPine 5mg tablet PO SCH (08:00)
[2021-04-12] MEDS: docusate sod 100mg capsule PO SCH (08:00)
[2021-04-12] MEDS: FLUTICASONE IH SCH (08:00)
[2021-04-12] MEDS: K and/or MAG REPLACEMENT MC SCH (08:00)
[2021-04-12] MEDS: fluticasone nasal spray 16GM bottle NS SCH (08:00)
[2021-04-12] MEDS: SALMETEROL IH SCH (08:00)
[2021-04-12 08:13] LABS: BASOPHILS # (AUTO) 0.1 X10'3 (0-0.2); BASOPHILS % (AUTO) 0.6 % (0-1); EOSINOPHILS % (AUTO) 0.1 % (0-6); HEMATOCRIT 38.7 % (42.0-52.0); LYMPHOCYTES # (AUTO) 1.1 X10'3 (1.1-4.8); LYMPHOCYTES % (AUTO) 9.5 % (21-51); MEAN CORPUSCULAR HEMOGLOBIN 28.8 PG (27.0-31.0); MEAN CORPUSCULAR HGB CONC 33.5 g/dL (33.0-36.5); MEAN CORPUSCULAR VOLUME 85.9 FL (78-98); MEAN PLATELET VOLUME 8.8 FL (7.4-10.4); MONOCYTES # (AUTO) 0.8 X10'3 (0-0.9); MONOCYTES % (AUTO) 6.8 % (2-12); NEUTROPHILS # (AUTO) 9.5 X10'3 (1.8-7.7); PLATELET COUNT 378 X10'3 (140-440); RED BLOOD COUNT 4.51 X10'6 (4.70-6.10); RED CELL DISTRIBUTION WIDTH 14.1 % (11.5-14.5); WHITE BLOOD COUNT 11.4 X10'3 (4.5-11.0)
[2021-04-12 08:33] LABS: ALANINE AMINOTRANSFERASE 70 U/L (12-78); ALBUMIN 2.7 G/DL (3.4-5.0); ALBUMIN/GLOBULIN RATIO 0.6 (1.1-1.5); ALKALINE PHOSPHATASE 67 IU/L (46-116); ANION GAP 7 (8-16); ASPARTATE AMINO TRANSFERASE 21 U/L (10-37); BILIRUBIN,TOTAL 0.4 MG/DL (0.1-1.0); BLOOD UREA NITROGEN 32 MG/DL (7-18); BUN/CREATININE RATIO 32.7 (5.4-32.0); CHLORIDE 103 MMOL/L (99-107); CREATININE 0.98 MG/DL (0.60-1.10); GLUCOSE 112 MG/DL (70-104); POTASSIUM 4.5 MMOL/L (3.5-5.1); SODIUM 142 MMOL/L (135-145); eGFR 78 ML/MIN
[2021-04-12 09:55] LABS: TOTAL CELLS COUNTED 100
[2021-04-12 09:56] LABS: LARGE PLATELETS FEW; PLATELET ESTIMATE NORMAL; SMUDGE CELLS FEW
[2021-04-12] MEDS: pantoprazole 40mg Tablet.DR PO SCH (09:59)
[2021-04-12] MEDS: methylPREDNISolone sod succ/PF 40mg inj. IV SCH (09:59)
[2021-04-12] MEDS: enoxaparin 40mg/0.4ml syringe SQ SCH (10:00)
[2021-04-12] MEDS ORDERED: DEC4T PO (10:51)
[2021-04-12] MEDS ORDERED: APIX5TAB3 PO (10:51)
[2021-04-12 11:26] VITALS: BP 104/59
[2021-04-12] MEDS: guaiFENesin/codeine phos 10ml UD oral syrup PO PRN (12:04)
[2021-04-12 12:43] LABS: D-DIMER 0.35 MG/L FEU (0-0.50)
--- NOTE | 2021-04-12 13:03 | NUR ---
O2 Sat at rest on room air:_88__% If below 89%: Recovery O2 Sat at rest on _4__LPM:__96_%:___% via____nasal cannula (mask/nasal cannula, etc..) No further documentation is necessary. If O2 Sat did not drop below 89% on room air,ambulate patient on room air. O2 Sat while ambulating on room air:___% Recovery O2 Sat while ambulating on ___LPM:___% No further documentation is necessary. If patient does not drop below 89% while ambulating, he/she does not qualify for home O2.
== END 2021-04-12 15:10 | disposition home or self-care (01) | DRG 177 ==
LOC: ER 15:22 → ED HOLD 18:08 → EDBEDREQ 04-03 16:42 → ORTHO 4S 04-03 17:30
PROVIDERS: ADMIT Family Medicine; ATTEND Family Medicine
PROC: XW033E5 Introduction of Remdesivir Anti-infective into Peripheral Vein, Percutaneous Approach, New Technology Group 5 (ICD-10-PCS; principal; 2021-04-01)
PROC: B32T1ZZ Computerized Tomography (CT Scan) of Left Pulmonary Artery using Low Osmolar Contrast (ICD-10-PCS; 2021-04-01)
PROC: B3201ZZ Computerized Tomography (CT Scan) of Thoracic Aorta using Low Osmolar Contrast (ICD-10-PCS; 2021-04-01)
PROC: B32S1ZZ Computerized Tomography (CT Scan) of Right Pulmonary Artery using Low Osmolar Contrast (ICD-10-PCS; 2021-04-01)
DX: U07.1 COVID-19 (principal); J12.82 Pneumonia due to coronavirus disease 2019; J96.01 Acute respiratory failure with hypoxia; R65.10 Systemic inflammatory response syndrome (SIRS) of non-infectious origin without acute organ dysfunction; J45.909 Unspecified asthma, uncomplicated; I10 Essential (primary) hypertension; K21.9 Gastro-esophageal reflux disease without esophagitis; E66.9 Obesity, unspecified; E78.5 Hyperlipidemia, unspecified; N28.9 Disorder of kidney and ureter, unspecified; Z79.899 Other long term (current) drug therapy; Z79.1 Long term (current) use of non-steroidal anti-inflammatories (NSAID); Z90.49 Acquired absence of other specified parts of digestive tract; Z81.8 Family history of other mental and behavioral disorders; Z82.49 Family history of ischemic heart disease and other diseases of the circulatory system; Z68.29 Body mass index [BMI] 29.0-29.9, adult
CPT/HCPCS: 36415; 36600; 71045; 71275; 80053; 80061; 81003; 82803; 83605; 83615; 83735; 84145; 85007; 85018; 85025; 85379; 86140; 87040; 87081; 87635; 93005; 94640; 94760; 97110; 97116; 97161; 97530; 99285; C9803; G0378; J1100; J1650; J2920; Q9967